=== PATIENT | female | born 1965 | race Caucasian/White ===

== ENCOUNTER 2016-09-08 17:56 | Emergency (ER) | payer MEDICARE, OTHER ==
[2016-09-08 18:48] LABS: ALBUMIN 4.4 g/dL (3.5-5.0); BILIRUBIN - TOTAL 0.4 mg/dL (0.1-1.0); GLOBULIN (CALCULATION) 2.6 g/dL (2.2-4.2); POTASSIUM 4.1 mmol/L (3.5-5.1)
[2016-09-08 18:55] LABS: BASOPHIL 0.7 % (0-2); EOSINOPHIL 3.6 % (0-5); HCT 33.4 % (37.0-47.0); HGB 10.1 g/dl (12.5-16.0); LYMPHOCYTE 31.8 % (15-48); MCH 27.2 pg (25.0-31.0); MCHC 30.2 g/dL (32.0-36.0); MCV 89.8 fL (78.0-100.0); MONOCYTE 6.7 % (0-12); MPV 9.2 fL (6.0-9.5); NEUTROPHIL 57.2 % (41-80); PLT 563 K/uL (150-400); RBC 3.72 M/uL (4.20-5.40); RDW 13.8 % (11.5-14.0); WBC 7.3 K/uL (4.0-10.5)
[2016-09-08 19:05] LABS: BILIRUBIN NEGATIVE (NEGATIVE); BLOOD 3+ Ery/uL (NEGATIVE); COLOR AMBER (YELLOW); GLUCOSE (U) NORMAL (NORMAL); KETONE (U) 1+ (SMALL) mg/dL (NEGATIVE); LEUKOCYTES NEGATIVE Leu/uL (NEGATIVE); NITRITE NEGATIVE (NEGATIVE); PROTEIN 1+ mg/dL (NEGATIVE); SPECIFIC GRAVITY >=1.030 (1.001-1.030)
[2016-09-08 19:06] LABS: CLARITY SLIGHTLY HAZY (CLEAR)
[2016-09-08 19:08] LABS: BACTERIA 1+
[2016-09-08 19:09] LABS: CALCIUM OXALATE CRYSTALS MODERATE; MUCOUS MODERATE
== END 2016-09-08 21:50 | disposition home or self-care (01) ==
LOC: FER 17:56
PROVIDERS: Nurse Practitioner Family
DX: N93.9 Abnormal uterine and vaginal bleeding, unspecified (principal); N30.01 Acute cystitis with hematuria; F17.210 Nicotine dependence, cigarettes, uncomplicated; Z90.710 Acquired absence of both cervix and uterus
CPT/HCPCS: 36415; 80053; 81001; 85025; 99284